=== PATIENT | female | born 1955 | race Caucasian/White ===

== ENCOUNTER 2019-03-13 05:41 | Emergency (ER) | payer OTHER ==
[2019-03-13] MEDS: HYDROCODONE/APAP (10/325) TAB PO (06:28)
[2019-03-13] MEDS: KETOROLAC 60 MG INJ IM (06:29)
== END 2019-03-13 07:03 | disposition home or self-care (01) ==
LOC: FTE 05:41
DX: M54.5 Low back pain (principal); F17.210 Nicotine dependence, cigarettes, uncomplicated; E11.9 Type 2 diabetes mellitus without complications; G20 Parkinson's disease; Z79.84 Long term (current) use of oral hypoglycemic drugs
CPT/HCPCS: 96372; 99284-25